=== PATIENT | female | born 1955 | race Caucasian/White ===

== ENCOUNTER 2023-10-22 08:16 | Outpatient (AMB) | payer BC, SELFPAY ==
--- NOTE | 2023-10-22 08:10 | A.OFFPC_ITS ---
Vital Signs 10/22/23 08:28 Height 5 ft 7.76 in Weight 173 lb 8 oz BMI 26.6 BP 136/80 Blood Pressure Location Rt brachial Position Sitting Respiration 14 Pulse 58 Pulse Source Pulse Oximeter Temp 98 F Temp Source Oral Pulse Oximetry (%) 98 Oxygen Delivery Method Room Air Intake Visit Reasons: Establish care [facility] transfer Intake Note: New patient visit - Allergies No Known Allergies Allergy (Verified 10/22/23 08:23) Tobacco use date assessed: 10/22/23 Fall risk assessment: No Falls in past year Last assessed Fall Risk: 10/22/23 Dental Screening Dental Screen Date: 10/22/23 Did you have a dental visit in the last 12 months?: Yes Did you have a dental problem in the last 6 months where you did not have access to dental care?: No Was dental information given to patient?: Patient has dentist HPI Establish care [facility] transfer HPI Details Patient is a 68-year-old female with a significant past medical history of hypertension, hyperlipidemia, diverticulosis who [facility] today [facility] [place] CV: Blood pressure today in the office is 136/80. She is on lisinopril 10 mg. Cholesterol is usually controlled with simvastatin 30 mg. No cp, sob. Endo: She states her thyroid was sluggish in the past and if still is, she wants to start medication. GI: She is getting intermittent lower abdominal pain that has been now happening every few weeks for one 1 week. She states it feels like it is becoming more frequent. Last year when she had this we did a ct which was unrevealing other than diverticulosis. She states she wonders if she is getting flare-ups of diverticulitis. She does not have any diarrhea, constipation, blood in the stool or urine. No urinary symptoms with this. At times she will get a decreased appetite with it. No fever, chills, nausea or vomiting. She states it just has this nagging lower abdominal discomfort. Mammo: Up-to-date, 11/06 and normal Pap: declines anymore Bone density: WVD-normal 2023 Colonoscopy: Up-to-date, 2021 Derm: sees [facility] and saw them in March Immunizations: [facility] Medical History (Updated 10/22/23 @ 08:46 by Delicia Schuster PA-C) H/O mammogram Tinnitus Solar degeneration Hypercholesterolemia Essential hypertension Dysfunction of eustachian tube Diverticulitis Allergic rhinitis Surgical History (Updated 10/22/23 @ 08:17 by Joslyn Cruz CMA) H/O colonoscopy Family History (Updated 10/22/23 @ 09:02 by Joslyn Cruz CMA) Mother HTN (hypertension) Hypercholesterolemia Father HTN (hypertension) Hypercholesterolemia Social History (Updated 10/22/23 @ 08:17 by Joslyn Cruz CMA) Housing: House Patient Tobacco Use Status: Never used Tobacco service: Yes Current occupational status: retired Cognitive needs: No Hearing needs: No Vision needs: No Questionnaire PHQ-9 Over the last 2 weeks, how often have you been bothered by any of the following problems? 1. Little interest or pleasure in doing things: not at all 2. Feeling down, depressed, or hopeless: not at all 3. Trouble falling or staying asleep, or sleeping too much: several days 4. Feeling tired or having little energy: several days 5. Poor appetite or overeating: not at all 6. Feeling bad about yourself - or that you are a failure or have let yourself or your family down: not at all 7. Trouble concentrating on things, such as reading the newspaper or watching television: not at all 8. Moving or speaking so slowly that other people could have noticed. Or the opposite - being so fidgety or restless that you have been moving around a lot more than usual: not at all 9. Thoughts that you would be better off or of hurting yourself in some way: not at all Total score: 2 Depression Screening Interpretation: Negative Depression Screening Done: Yes 30305 - PHQ-9 Billing: Yes Source: Developed by Drs. Jose Manuel Bowen, Za Rivas, Joce Salguero and colleagues, with an educational zbigniew from [employer]. Thrive Questionnaire Date Thrive assessed: 10/22/23 I am a: Patient What is your living situation today?: I have a steady place to live Within the past 12 months, did the food you bought not last and you didn't have the money to get more?: Never true Within the past 12 months, did you worry whether your food would run out before you got money to buy more?: Never true Do you have trouble paying for medicines?: No Do you have trouble getting transportation to medical appointments?: No Do you have trouble paying your heating and electricity bill?: No Do you have trouble taking care of your child, family member or friend?: No Do you have trouble with day-to-day activities such as bathing, preparing meals, shopping, managing finances, etc.?: No Are you currently unemployed and looking for a job?: No Are you interested in more education?: No Please select the resources that you would like help with: None Currently or been in a relationship where the following occur: No concerns reported THRIVE Score: 0 AUDIT C Alcohol Use Questionnaire (AUDIT-C) 1. How often do you have a drink containing alcohol?: 2-3 times a week 2. How many drinks containing alcohol do you have on a typical day when you are drinking?: 1 or 2 3. How often do you have six or more drinks on one occasion?: Never Total Score: 3 ISAI-7 AMB Questionnaire ISAI-7 Date ISAI - 7 assessed: 10/22/23 Feeling nervous, anxious, or on edge: 0 = Not at all Not being able to stop or control worryin = Not at all Worrying too much about different things: 0 = Not at all Trouble relaxin = Not at all Being so restless that it is hard to sit still: 0 = Not at all Becoming easily annoyed or irritable: 0 = Not at all Feeling afraid as if something awful might happen: 0 = Not at all Total ISAI-7 score (0-4 normal; 5-9 mild; 10-14 moderate; 15-21 severe): 0 Source: Developed by Drs. Jose Manuel Bowen, Za Rivas, Joce Salguero and colleagues, with an educational zbigniew from [employer]. ISAI-7 Assessment Billing ISAI-7 Assessment Tool: ISAI-7 Assessment 61290 Physical exam (Primary Care) Vital Signs: Last Vital Signs Temp 98 F 10/22/23 08:28 Pulse 58 10/22/23 08:28 Resp 14 10/22/23 08:28 BP 136/80 10/22/23 08:28 Pulse Ox 98 10/22/23 08:28 Oxygen Delivery Method Room Air 10/22/23 08:28 BMI result Body Mass Index 26.6 Tobacco/Smoking Status: Tobacco use Status Tobacco use date assessed 10/22/23 10/22/23 08:30 Patient Tobacco Use Status Never used Tobacco 10/22/23 08:30 Depression Screening Interpretation: Negative Currently or been in a relationship where the following occur: No concerns reported Const Orientation/consciousness: patient oriented x3 HENMT Ears: hearing grossly normal bilaterally Neck Thyroid: Thyroid normal Lymphatic: no lymphadenopathy noted Resp Auscultation: clear to auscultation bilaterally Cardio Rate: regular rate Rhythm: regular rhythm Heart sounds: S1 normal heart sound present and S2 normal heart sound present GI Inspection: Yes normal to inspection Palpation (GI): Soft to palpation and Other GI palpation findings present (nontender, no cva tenderness) Auscultation: normoactive bowel sounds Rectal Exam - Female: deferred Skin General skin exam: no rashes or lesions noted Neuro General: patient oriented x3, gait normal and no focal motor deficits Assessment and Plan Assessment & Plan (1) Hypertension: Code(s): I10 - Essential (primary) hypertension Qualifiers: Hypertension type: primary hypertension Qualified Code(s): I10 - Essential (primary) hypertension Plan: WNL. Continue current regimen. (2) Dyslipidemia: Code(s): E78.5 - Hyperlipidemia, unspecified Plan: Lipids and LFTs ordered. (3) Lower abdominal pain: Code(s): R10.30 - Lower abdominal pain, unspecified Plan: Advised high-fiber diet. Referral to GI. Abdominal exam today is benign. Labs and urine ordered. Follow up in a couple of months to be reassessed. Sooner if needed. Patient understands and agrees with the plan. Orders: Orders UA CC w/rflx Micro + Cult Today R10.30 - Lower abdominal pain, unspecified Referrals Gastroenterology Referral R10.30 - Lower abdominal pain, unspecified Coding Level of Care Code Est Pt Level 4 (38954) Complex EM visit Add On G2211 Diagnoses Primary hypertension I10 Hypertension type: primary hypertension Dyslipidemia E78.5 Lower abdominal pain R10.30 Additional Codes ISAI-7 Assessment Billing - ISAI-7 Assessment Tool: ISAI-7 Assessment 74113 ([id number])
[2023-10-22 08:28] VITALS: BP 136/80; PULSE 58; RESP 14; TEMP 36.6; O2SAT 98; BMI 26.6
== END 2023-10-22 09:03 | disposition home or self-care (01) ==
PROVIDERS: PCP Physician Assistant; Visit Provider Physician Assistant
DX: I10 Essential (primary) hypertension (principal); E78.5 Hyperlipidemia, unspecified; R10.30 Lower abdominal pain, unspecified
CPT/HCPCS: 99214

== ENCOUNTER 2023-10-23 07:34 | Outpatient (REF) | payer BC, SELFPAY ==
[2023-10-23 10:57] LABS: MANUAL DIFF FLAG NO
[2023-10-23 11:05] LABS: Appearance Urine Cloudy; Color Urine Yellow; Glucose Urine UA Negative (Negative); Leukocyte Esterase Urine Small (1+) (Negative); Nitrite Urine Negative (Negative); UMIC TRIGGER UACC YES; Urine Blood Negative (Negative); Urine Ketones Negative (Negative); Urine Protein Negative (Neg-Trace)
[2023-10-23 11:07] LABS: Basophils Percent Auto 0.6 % (0-2); Eosinophils Absolute Auto 0.1 X10*3/uL (0.0-0.4); Eosinophils Percent Auto 2.1 % (0-4); Hematocrit 44.6 % (37.0-47.0); Imm Gran Abs Auto 0.01 X10*3/uL (0.00-0.03); Imm Gran Pct Auto 0.2 % (0.0-0.4); Lymphocytes Absolute Auto 1.9 X10*3/uL (1.2-4.9); Lymphocytes Percent Auto 39.7 % (20-40); Mean Corpuscular HGB Conc 33.6 g/dl (31.0-35.0); Mean Corpuscular Hemoglobin 30.4 pg (27.0-33.0); Mean Corpuscular Volume 90.5 fL (80.0-98.0); Mean Platelet Volume 9.9 fL (9.4-12.3); Monocytes Absolute Auto 0.3 X10*3/uL (0.1-1.2); Monocytes Percent Auto 6.9 % (2-11); Neutrophils Absolute Auto 2.4 x10*3/uL (2.0-8.3); Neutrophils Percent Auto 50.5 % (45-73); Platelet Count 278 X10*3/uL (160-400); Red Blood Count 4.93 X10*6/uL (4.20-5.50); Red Cell Distribution Width 12.8 % (11.0-16.0); White Blood Count 4.8 X10*3/uL (4.8-10.8)
[2023-10-23 11:22] LABS: Bacteria Urine None Seen (None Seen); Calcium Oxalate Crystals Urine Present; Hyaline Casts Urine 0-2 /LPF (0-2); RBC Urine 0-2 /HPF (0-2); UACC Culture Trigger YES; WBC Urine 0-5 /HPF (0-5)
[2023-10-23 11:34] LABS: Alanine Aminotransferase 25 U/L (0-31); Albumin Level 4.1 g/dL (3.5-5.0); Alkaline Phosphatase 54 U/L (39-117); Anion Gap 11 (12-20); Aspartate Amino Transferase 21 U/L (5-31); Bilirubin Total 0.5 mg/dL (0.0-1.0); Blood Urea Nitrogen 16 mg/dL (9-16); Calcium 9.7 mg/dL (8.4-10.2); Carbon Dioxide 29 mmol/L (22-29); Chloride 107 mmol/L (96-108); Cholesterol 189 mg/dL (<200); Estimated Glomerular Filt Rate > 60; Glucose Fasting 91 mg/dL (60-99); HDL Cholesterol 65 mg/dL (>40); LDL Cholesterol Calculated 102 mg/dL (<100); Potassium 4.2 mmol/L (3.3-5.1); Sodium 143 mmol/L (135-145); TSH reflex Free T4 2.12 uIU/mL (0.32-4.0); Total Protein 7.2 g/dL (6.5-8.0); Triglycerides 113 mg/dL (<150)
== END 2023-10-23 07:35 | disposition home or self-care (01) ==
LOC: HO.WFDLDS 07:34
PROVIDERS: Visit Provider Physician Assistant
DX: E78.5 Hyperlipidemia, unspecified (principal); I10 Essential (primary) hypertension; R10.30 Lower abdominal pain, unspecified
CPT/HCPCS: 36415; 80053; 80061; 81001; 81003; 84443; 85025; 87086

== ENCOUNTER 2024-01-20 13:40 | Outpatient (AMB) | payer BC, SELFPAY ==
[2024-01-20 13:56] VITALS: BP 140/85; PULSE 81; BMI 26.6
--- NOTE | 2024-01-20 13:56 | MHC.OFFVIS ---
Vital Signs 01/20/24 13:56 Height 5 ft 7.76 in Weight 173 lb 11.588 oz BMI 26.6 BP 140/85 H Blood Pressure Location Rt brachial Position Sitting Pulse 81 Intake Visit Reasons: Lower abd pain Intake Note: Patient in office today as a new patient for diverticulosis. CC: Patient states that she had a CT scan done a year ago that showed diverticulosis. She states that she's had it for years and she sometimes has some flare ups but she believes she has a high tolerance to pain and she just waits until the pain goes away. She states that she sometimes gets constipated and she takes Metamucil sporadically and fiber which helps with constipation. Marriage And Family Counselor Required: No Pick Up Driver: Pick Up Driver Present Allergies No Known Allergies Allergy (Verified 02/04/24 08:24) HPI HPI Lower abd pain: Details: 68-year-old female here for initial evaluation of abdominal pain. She is referred by Delicia Schuster. Sd Richardson Hypertension High cholesterol History of diverticulitis Eustachian tube dysfunction Allergic rhinitis * SURGICAL HISTORY Colonoscopy * ALLERGIES: NKDA * Plays.IO LABS: Laboratory Tests 10/23/23 10/23/23 07:36 09:36 WBC 4.8 Hgb 15.0 Hct 44.6 Plt Count 278 Estimated GFR > 60 Total Bilirubin 0.5 jAST 21 ALT 25 Alkaline Phosphatase 54 TSH 2.12 TODAY'S VISIT ONset many years ago with lower abd pain and she was given a physical exam and dx of diverticulitis. THey gave her abx and it cleared up. Now every so often she will have some pain that spans across the lower abd just below the umbilicus as a burning pain. When she would not have pain she would not think about this. BUT then her sister had some sort of blockage that lead to sepsis and an ICU stay. This worried her and she had a CT at [facility] [place] showing only mild TICs and a GB polyp. Since then she has tried to add dietary fiber and she has had no more pain. She had been taking metamucil but was confused about it conflicting with her am lisinopril. We discuss diet and I print her one with the caveat that this is somewhat controversy in research. Also changing time of day of fiber supplement and could consider Benefiber or Citrucel or IB guard. Last scope 06/2020 at [facility] with Dr. Cervantes. ROV 3 mos. [facility] Medical History (Updated 10/22/23 @ 08:46 by Delicia Schuster PA-C) H/O mammogram Tinnitus Solar degeneration Hypercholesterolemia Essential hypertension Dysfunction of eustachian tube Diverticulitis Allergic rhinitis Surgical History History of esophagogastroduodenoscopy (EGD) H/O colonoscopy Family History Mother HTN (hypertension) Hypercholesterolemia Basal cell carcinoma Father HTN (hypertension) Hypercholesterolemia Social History (Updated 02/04/24 @ 08:29 by Joslyn Cruz CMA) Housing: House Alcohol intake: current Alcohol intake frequency: holidays/special occasions only Patient Tobacco Use Status: Never used Tobacco service: Yes Current occupational status: retired Cognitive needs: No Hearing needs: No Vision needs: No Review of Systems Const Denies fatigue, Denies fever(s), Denies night sweats, Denies poor appetite and Denies weight loss Eyes Details: glasses Reports requires corrective lenses ENT Reports Normal hearing present, Denies dental pain, Denies dysphagia, Denies hearing loss, Denies mouth pain, Denies odynophagia, Denies throat swelling, Denies tongue swelling and Reports other (Dentition adequate) Card Reports no additional complaints Resp Reports no additional complaints GI Details: Denies abdominal pain, Denies melena, Denies bloating, Denies hematochezia, Denies constipation, Reports GI cramping, Denies dysphagia, Denies excessive flatus, Denies early satiety, Denies heartburn, Denies diarrhea, Denies nausea, Denies odynophagia, Denies vomiting and Denies hematemesis Skin/Breast Denies pruritus, Denies lesions, Denies rash and Denies jaundice Neuro Reports Normal hearing present and Denies Abnormal speech present Endo Denies fatigue Aller/Immun Denies throat swelling and Denies tongue swelling Physical Exam Vital Signs: Last Vital Signs Pulse 81 01/20/24 13:56 BP 140/85 H 01/20/24 13:56 BMI result Body Mass Index 26.6 Const General: cooperative, no acute distress, well developed and well groomed Nutritional Appearance: average body habitus and well nourished Orientation/consciousness: oriented to person, oriented to place and oriented to time Limitations: No language barrier HEENT Head: Yes normocephalic and Yes atraumatic Eyes General: appearance normal, both eyes and all related structures Pupils: Equal, round and reactive pupils present Neck Neck: Yes normal visual inspection and Yes no lymphadenopathy Thyroid: Thyroid normal Resp Effort & Inspection: normal respiratory effort and able to speak in complete sentences Auscultation: clear to auscultation bilaterally Cardio Rate: regular rate Rhythm: regular rhythm Heart sounds: Normal, physiologic split S2 sound present Peripheral pulses: radial pulses present and posterior tibial pulses present GI Inspection: No distended and No Abdominal panniculus present Palpation (GI): Soft to palpation, nontender, no guarding, not rigid and No hepatosplenomegaly present Percussion: Yes normal to percussion Auscultation: normal bowel sounds Rectal Exam - Female: deferred Skin Other: dermal cyst on mid thoracic back General skin exam: no rashes or lesions noted, turgor normal, dry skin, no jaundice, No spider nevi and no striae Rashes: no rashes Nails: normal Neuro General: oriented to person, oriented to place and oriented to time Cranial nerves: Yes Equal, round and reactive pupils present and Yes Normal hearing present Speech: No Abnormal speech present Extrem General: Yes normal to inspection, No clubbing, No cyanosis and No edema Psych Appearance: grossly normal and well kempt Mental Status: mental status grossly normal Speech and movement: Normal speech and movement present Affect: normal affect Attitude: cooperative Thought process: Normal thought process present and not confabulating Thought content: Normal thought content present Insight: Fair insight present (Psych) Judgement: Fair judgement present (Psych) Assessment & Plan Assessment & Plan (1) Lower abdominal pain: Code(s): R10.30 - Lower abdominal pain, unspecified Category: Medical (2) Diverticulosis: Code(s): K57.90 - Diverticulosis of intestine, part unspecified, without perforation or abscess without bleeding Category: Medical Plan ONset many years ago with lower abd pain and she was given a physical exam and dx of diverticulitis. THey gave her abx and it cleared up. Now every so often she will have some pain that spans across the lower abd just below the umbilicus as a burning pain. When she would not have pain she would not think about this. BUT then her sister had some sort of blockage that lead to sepsis and an ICU stay. This worried her and she had a CT at [facility] [place] showing only mild TICs and a GB polyp. Since then she has tried to add dietary fiber and she has had no more pain. She had been taking metamucil but was confused about it conflicting with her am lisinopril. We discuss diet and I print her one with the caveat that this is somewhat controversy in research. Also changing time of day of fiber supplement and could consider Benefiber or Citrucel or IB guard. She seems to feel better when she has the fiber so I suspect this is some form of diverticular disease. Now that she knows she needs to take the fiber and it is okay to take it with the lisinopril we will go forward and see how she reacts to this. Last scope 06/2020 at [facility] with Dr. Cervantes. ROV 3 mos. Coding Level of Care Code New Pt Level 3 (86629) Diagnoses Lower abdominal pain R10.30 Diverticulosis K57.90
== END 2024-01-20 15:00 | disposition home or self-care (01) ==
LOC: HO.HGI 13:40
PROVIDERS: PCP Physician Assistant; Visit Provider Nurse Practitioner
DX: R10.30 Lower abdominal pain, unspecified (principal); K57.90 Diverticulosis of intestine, part unspecified, without perforation or abscess without bleeding
CPT/HCPCS: 99203

== ENCOUNTER 2024-02-04 08:17 | Outpatient (AMB) | payer BC, SELFPAY ==
--- NOTE | 2024-02-04 08:23 | MHC.PC.OV ---
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: No Allergies No Known Allergies Allergy (Verified 02/04/24 08:24) Medication List - Last Reconciled 02/04/24 by Delicia Schuster PA-C cholecalciferol (vitamin D3) 25 mcg PO DAILY econazole 1% appl topical lisinopril 10 mg PO DAILY metronidazole 0.75% appl topical multivitamin (One Daily Multivitamin tablet) 1 tab PO DAILY psyllium husk (Metamucil) 1 tbsp PO DAILY simvastatin 20 mg PO BEDTIME tacrolimus 0.1% 1 appl topical BID Tobacco use date assessed: 10/22/23 Dental Screening Dental Screen Date: 10/22/23 HPI f/u blood pressure HPI Details History of Present Illness The patient is a 68-year-old female presenting with a follow-up for previously reported abdominal pain, blood pressure management, and hyperlipidemia. The patient reports a history of abdominal pain, which has improved significantly with increased dietary fiber intake, using Metamucil intermittently. This abdominal issue was initially significant but appears to have resolved. Regarding her blood pressure, the patient has a history of essential hypertension managed with lisinopril 10 mg daily. She noted a trend of mildly elevated blood pressure readings recently, with today's measurement at 136/86 mmHg and previous readings around 140/85 mmHg, prompting consideration for medication adjustment. She has been on simvastatin 20 mg for hyperlipidemia, which has shown good control, with her cholesterol results noted as perfect. Social History - Resides with her sister. - Attempts adherence to a health-conscious diet, inclusive of increased fiber intake. - Receives medications via mail order delivery service. Review of Systems - Neurological: Denies any memory issues or significant neurological events. Physical Exam General: Cooperative, healthy appearing, comfortable, no acute distress and well developed Orientation: Patient oriented x3 Limitations: No limitations Head: Normal to inspection Ears: Hearing grossly normal bilaterally Nose: Normal external nose present Face and sinus: Normal facial exam Eyes: Appearance normal, both eyes and all related structures Neck: Normal visual inspection and Yes full ROM, no swollen lymph nodes Respiratory: Normal respiratory effort and able to speak in complete sentences. Clear to auscultation bilaterally Cardiovascular: Regular rate and rhythm. Normal S1 and S2 GI: Normal to inspection. Soft to palpation and nontender Skin: No rashes or lesions noted Neuro: Patient oriented x3 Extremities: Normal to inspection, no swelling Results Plan - Essential Hypertension: Patient to increase lisinopril to a total of 15 mg daily using one 10 mg tablet and one 5 mg tablet. Tried 20 mg one time and felt that was too much. Does not want to take a different class of med. The patient should monitor blood pressure at home. Follow-up lab work prior to the next visit to reassess her condition. - Hyperlipidemia: Continue simvastatin 20 mg daily. No immediate adjustments required due to current excellent control over cholesterol levels. - Preventative Measures: Administer flu vaccination today. All other immunizations are up to date. Recheck labs including liver, kidney function, and electrolytes before the next visit. Patient was informed and verbally consented to the use of an ambient scribe for clinic note documentation during this visit. Discussion Notes During the visit, I discussed with the patient the plan to adjust her hypertension management by increasing her lisinopril dose to 15 mg daily to better control her blood pressure, given recent borderline elevations. We weighed the benefits against past experiences where a higher dosage resulted in overly low blood pressure. I advised her to monitor her blood pressure readings at home regularly. Regarding her hyperlipidemia, her current regimen with simvastatin 20 mg will continue as her lipid profile is optimal. We also covered the importance of maintaining increased fiber intake, which appears to have resolved her prior abdominal pain concerns. Additionally, I recommended the administration of a higher-dose flu vaccine appropriate for her age group. We plan to conduct follow-up lab work before the next visit to monitor her liver and kidney function, as well as her blood sugar and thyroid function. Patient Instructions [facility] Medical History (Updated 10/22/23 @ 08:46 by Delicia Schuster PA-C) H/O mammogram Tinnitus Solar degeneration Hypercholesterolemia Essential hypertension Dysfunction of eustachian tube Diverticulitis Allergic rhinitis Surgical History (Updated 01/20/24 @ 14:03 by SLOAN Abrams) History of esophagogastroduodenoscopy (EGD) H/O colonoscopy Family History (Updated 01/20/24 @ 14:07 by Vilmarys Sree Magana, CCMA) Mother HTN (hypertension) Hypercholesterolemia Basal cell carcinoma Father HTN (hypertension) Hypercholesterolemia Social History (Updated 01/20/24 @ 14:08 by Redd Magana [facility]) Housing: House Alcohol intake: current Alcohol intake frequency: holidays/special occasions only Patient Tobacco Use Status: Never used Tobacco service: Yes Current occupational status: retired Cognitive needs: No Hearing needs: No Vision needs: No Questionnaire PHQ-9 Over the last 2 weeks, how often have you been bothered by any of the following problems? 1. Little interest or pleasure in doing things: not at all 2. Feeling down, depressed, or hopeless: not at all 3. Trouble falling or staying asleep, or sleeping too much: not at all 4. Feeling tired or having little energy: not at all 5. Poor appetite or overeating: not at all 6. Feeling bad about yourself - or that you are a failure or have let yourself or your family down: not at all 7. Trouble concentrating on things, such as reading the newspaper or watching television: not at all 8. Moving or speaking so slowly that other people could have noticed. Or the opposite - being so fidgety or restless that you have been moving around a lot more than usual: not at all 9. Thoughts that you would be better off or of hurting yourself in some way: not at all Total score: 0 Source: Developed by Drs. Jose Manuel Bowen, Za Rivas, Joce Salguero and colleagues, with an educational zbigniew from [employer]. Thrive Questionnaire Date Thrive assessed: 01/28/24 I am a: Patient What is your living situation today?: I have a steady place to live Within the past 12 months, did the food you bought not last and you didn't have the money to get more?: Never true Within the past 12 months, did you worry whether your food would run out before you got money to buy more?: Never true Do you have trouble paying for medicines?: No Do you have trouble getting transportation to medical appointments?: No Do you have trouble paying your heating and electricity bill?: No Do you have trouble taking care of your child, family member or friend?: No Do you have trouble with day-to-day activities such as bathing, preparing meals, shopping, managing finances, etc.?: No Are you currently unemployed and looking for a job?: No Are you interested in more education?: No Please select the resources that you would like help with: None Currently or been in a relationship where the following occur: No concerns reported THRIVE Score: 0 AUDIT C Alcohol Use Questionnaire (AUDIT-C) 1. How often do you have a drink containing alcohol?: 2-3 times a week 2. How many drinks containing alcohol do you have on a typical day when you are drinking?: 1 or 2 3. How often do you have six or more drinks on one occasion?: Never Total Score: 3 SIAI-7 AMB Questionnaire ISAI-7 Date ISAI - 7 assessed: 10/22/23 Feeling nervous, anxious, or on edge: 0 = Not at all Not being able to stop or control worryin = Not at all Worrying too much about different things: 0 = Not at all Trouble relaxin = Not at all Being so restless that it is hard to sit still: 0 = Not at all Becoming easily annoyed or irritable: 0 = Not at all Feeling afraid as if something awful might happen: 0 = Not at all Total ISAI-7 score (0-4 normal; 5-9 mild; 10-14 moderate; 15-21 severe): 0 Source: Developed by Drs. Jose Manuel Bowen, Za Rivas, Joce Salguero and colleagues, with an educational zbigniew from [employer]. Physical exam (Primary Care) Tobacco/Smoking Status: Tobacco use Status Tobacco use date assessed 10/22/23 02/04/24 08:24 Patient Tobacco Use Status Never used Tobacco 02/04/24 08:24 PHQ-9: PHQ-9 Score PHQ-9: Total score 0 02/04/24 08:24 Thrive Assessment: Date of Thrive Assessment Date Thrive assessed 01/28/24 02/04/24 08:24 Currently or been in a relationship where the following occur: No concerns reported Coding Level of Care Code Est Pt Level 4 (40131) Complex EM visit Add On G2211 Diagnoses Dyslipidemia E78.5 Primary hypertension I10 Hypertension type: primary hypertension Assessment & Plan Assessment & Plan (1) Dyslipidemia: Code(s): E78.5 - Hyperlipidemia, unspecified Category: Medical (2) Hypertension: Code(s): I10 - Essential (primary) hypertension Category: Medical Qualifiers: Hypertension type: primary hypertension Qualified Code(s): I10 - Essential (primary) hypertension Plan . Orders: Orders Comprehensive [place]. Panel Fast Today E78.5 - Hyperlipidemia, unspecified, I10 - Essential (primary) hypertension TSH reflex Free T4 Today E78.5 - Hyperlipidemia, unspecified, I10 - Essential (primary) hypertension Complete Blood Count Auto Diff Today E78.5 - Hyperlipidemia, unspecified, I10 - Essential (primary) hypertension Medications: New simvastatin 20 mg PO BEDTIME 90 tabs 3RF lisinopril take with the 10 mg tab for a total of 15 mg 5 mg PO DAILY 90 tabs 3RF Changed From lisinopril 10 mg PO DAILY To lisinopril take with the 5 mg tab for a total of 15 mg 10 mg PO DAILY 90 tabs 3RF
[2024-02-04 08:26] VITALS: BP 136/86; PULSE 63; O2SAT 99; BMI 26.9
== END 2024-02-04 08:54 | disposition home or self-care (01) ==
PROVIDERS: PCP Physician Assistant; Visit Provider Physician Assistant
DX: E78.5 Hyperlipidemia, unspecified (principal); I10 Essential (primary) hypertension

== ENCOUNTER → 2024-02-04 08:17 | Outpatient (BNVA) | payer BC, SELFPAY | PROVIDERS: PCP Physician Assistant; Visit Provider Physician Assistant ==

== ENCOUNTER 2024-04-26 08:04 | Outpatient (REF) | payer BC, SELFPAY ==
--- OUTSIDE RECORDS SUMMARY | 2024-04-26 08:08 | XMS_ITS | Patient Health Record ---
Author Organization [facility] Address [address] [place] [address] Support Name Relationship Address Phone THERESA SMITH Guarantor Unknown [phone] Reason For Referral No Information Medications Medication SIG (Take, Route, Fr equency, Duration) Notes Start Date End Date Status Zocor 20MG 1 ORAL daily for -3 Benjamín-MJ 06/20/2011 Active Lisinopril 10MG 1 ORAL daily for -3 Benjamín-MJ 04/21/2011 Active Immunizations Vaccine Route Administration Date Status Comme nts Influenza, live, intranasal Intramuscular 10/08/2011 Pendi ng Tdap Intramuscular 10/08/2011 Pending Problems Problem Type SNOMED Code ICD Code Onset Dates Problem Status W/U Status Risk Notes Problem Hyperlipidemia (66647561) Other and unspecified hyperlipidemia (272.4) Active confirmed Major Problem Essential hypertension (84422145) Unspecified essential hypertension (401.9) Active confirmed Major Problem General examination of patient (976726176) Routine general medical examination at health care facility (V70.0) Active confirmed Diag Plan Of Treatment No Information Insurance Providers Payer Name Payer Address Payer Phone Subscriber Number Group Number Insured Name Patient Relationship to Insured Coverage Start Date Coverage End Date [employer] [place] [address] [place] [address] [id number] LUISTHERESA Self - patient is the insured
[2024-04-26 11:06] LABS: MANUAL DIFF FLAG NO
[2024-04-26 11:12] LABS: Basophils Absolute Auto 0.1 X10*3/uL (0.0-0.2); Basophils Percent Auto 0.7 % (0-2); Eosinophils Absolute Auto 0.1 X10*3/uL (0.0-0.4); Eosinophils Percent Auto 1.6 % (0-4); Hematocrit 43.6 % (37.0-47.0); Hemoglobin 14.6 g/dl (12.0-16.0); Imm Gran Abs Auto 0.02 X10*3/uL (0.00-0.03); Imm Gran Pct Auto 0.3 % (0.0-0.4); Lymphocytes Absolute Auto 1.7 X10*3/uL (1.2-4.9); Lymphocytes Percent Auto 25.1 % (20-40); Mean Corpuscular HGB Conc 33.5 g/dl (31.0-35.0); Mean Corpuscular Hemoglobin 29.7 pg (27.0-33.0); Mean Corpuscular Volume 88.8 fL (80.0-98.0); Mean Platelet Volume 9.9 fL (9.4-12.3); Monocytes Absolute Auto 0.5 X10*3/uL (0.1-1.2); Monocytes Percent Auto 7.8 % (2-11); Neutrophils Absolute Auto 4.3 x10*3/uL (2.0-8.3); Neutrophils Percent Auto 64.5 % (45-73); Platelet Count 304 X10*3/uL (160-400); Red Blood Count 4.91 X10*6/uL (4.20-5.50); White Blood Count 6.7 X10*3/uL (4.8-10.8)
[2024-04-26 11:37] LABS: Alanine Aminotransferase 22 U/L (0-31); Albumin Level 4.1 g/dL (3.5-5.0); Alkaline Phosphatase 56 U/L (39-117); Anion Gap 9 (12-20); Aspartate Amino Transferase 23 U/L (5-31); Bilirubin Total 0.4 mg/dL (0.0-1.0); Blood Urea Nitrogen 20 mg/dL (9-16); Calcium 9.3 mg/dL (8.4-10.2); Carbon Dioxide 27 mmol/L (22-29); Chloride 110 mmol/L (96-108); Estimated Glomerular Filt Rate > 60; Glucose Fasting 95 mg/dL (60-99); Potassium 4.2 mmol/L (3.3-5.1); Sodium 142 mmol/L (135-145); Total Protein 7.4 g/dL (6.5-8.0)
== END 2024-04-26 08:05 | disposition home or self-care (01) ==
LOC: HO.WFDLDS 08:04
PROVIDERS: Visit Provider Physician Assistant
DX: I10 Essential (primary) hypertension (principal); E78.5 Hyperlipidemia, unspecified
CPT/HCPCS: 36415; 80053; 84443; 85025

== ENCOUNTER 2024-04-28 08:27 | Outpatient (AMB) | payer BC, SELFPAY ==
--- NOTE | 2024-04-28 08:22 | MHC.PC.OV ---
Intake Visit Reasons: bp recheck,labs,has bp machine/[id number] Intake Note: Follow up blood pressure and labs. Blood pressure at home at 127/85, 129/87.121/83 Allergies No Known Allergies Allergy (Verified 04/28/24 08:23) Tobacco use date assessed: 10/22/23 Dental Screening Dental Screen Date: 10/22/23 HPI bp recheck,labs,has bp machine/[id number] HPI Details Pt is a 69 y/o female who presents today for a follow up. She states she switched to telehealth due to weather and getting sick. She states she woke up yesterday with sinus congestion, fatigue, runny nose and a slight cough. She states she tested for covid and it was negative. She is feeling better today when compared to yesterday. She states that she feels confident that it is just a cold. She has been using [id number] supportive measures and resting and states that she can tell it is getting better. Denies any fever, chills, wheezing, shortness for breath, nausea, vomiting or diarrhea. No body aches. CV: bps at home have been around 115-130/70-80. She is doing well with the 15 mg of lisinopril. No low bps and states nothing significantly high. Cholesterol has been well managed with the simvastatin. No myalgias. Mammo: Up-to-date, 11/06 and normal Pap: declines anymore Bone density: UTD-normal 2023 Colonoscopy: Up-to-date, 2021 Derm: sees [facility] and saw them in March Immunizations: [facility] Medical History (Updated 10/22/23 @ 08:46 by Delicia Schuster PA-C) H/O mammogram Tinnitus Solar degeneration Hypercholesterolemia Essential hypertension Dysfunction of eustachian tube Diverticulitis Allergic rhinitis Surgical History History of esophagogastroduodenoscopy (EGD) H/O colonoscopy Family History Mother HTN (hypertension) Hypercholesterolemia Basal cell carcinoma Father HTN (hypertension) Hypercholesterolemia Social History (Updated 04/28/24 @ 08:25 by Joslyn Cruz CMA) Housing: House Alcohol intake: current Alcohol intake frequency: holidays/special occasions only Patient Tobacco Use Status: Never used Tobacco service: Yes Current occupational status: retired Cognitive needs: No Hearing needs: No Vision needs: No Questionnaire Thrive Questionnaire Date Thrive assessed: 04/21/24 I am a: Patient What is your living situation today?: I have a steady place to live Within the past 12 months, did the food you bought not last and you didn't have the money to get more?: Never true Within the past 12 months, did you worry whether your food would run out before you got money to buy more?: Never true Do you have trouble paying for medicines?: No Do you have trouble getting transportation to medical appointments?: No Do you have trouble paying your heating and electricity bill?: No Do you have trouble taking care of your child, family member or friend?: No Do you have trouble with day-to-day activities such as bathing, preparing meals, shopping, managing finances, etc.?: No Are you currently unemployed and looking for a job?: No Are you interested in more education?: No Please select the resources that you would like help with: None Currently or been in a relationship where the following occur: No concerns reported THRIVE Score: 0 AUDIT C Alcohol Use Questionnaire (AUDIT-C) 1. How often do you have a drink containing alcohol?: 2-3 times a week 2. How many drinks containing alcohol do you have on a typical day when you are drinking?: 1 or 2 3. How often do you have six or more drinks on one occasion?: Never Total Score: 3 ISAI-7 AMB Questionnaire ISAI-7 Date ISAI - 7 assessed: 10/22/23 Feeling nervous, anxious, or on edge: 0 = Not at all Not being able to stop or control worryin = Not at all Worrying too much about different things: 0 = Not at all Trouble relaxin = Not at all Being so restless that it is hard to sit still: 0 = Not at all Becoming easily annoyed or irritable: 0 = Not at all Feeling afraid as if something awful might happen: 0 = Not at all Total ISAI-7 score (0-4 normal; 5-9 mild; 10-14 moderate; 15-21 severe): 0 Source: Developed by Za Barbour Kurt Kroenke and colleagues, with an educational zbigniew from [employer]. Physical exam (Primary Care) Tobacco/Smoking Status: Tobacco use Status Tobacco use date assessed 10/22/23 04/28/24 08:25 Patient Tobacco Use Status Never used Tobacco 04/28/24 08:25 Thrive Assessment: Date of Thrive Assessment Date Thrive assessed 04/21/24 04/28/24 08:25 Currently or been in a relationship where the following occur: No concerns reported Telehealth Telehealth Telehealth Platform: Telephone Location of provider rendering services: practice address Location of patient: address on file Patient Identification confirmed using: Name, : Yes Telehealth method: voice only Patient verbally consented to treatment: Yes Patient verbally consented to billing insurance company: Yes Patient informed of any privacy concerns related to visit: Yes Minutes spent on Phone/Video with Pt.: 17 Results Reviewed Results Reviewed: Laboratory Tests 04/26/24 08:05 WBC 6.7 RBC 4.91 Hgb 14.6 Hct 43.6 Plt Count 304 Sodium 142 Potassium 4.2 Chloride 110 H Carbon Dioxide 27 Anion Gap 9 L BUN 20 H Creatinine 0.75 Estimated GFR > 60 Fasting Glucose 95 Calcium 9.3 Total Bilirubin 0.4 AST 23 ALT 22 Alkaline Phosphatase 56 Total Protein 7.4 Albumin 4.1 TSH 2.60 Coding Level of Care Code Tele Est Pt Level 3 (84411) Diagnoses Primary hypertension I10 Hypertension type: primary hypertension Dyslipidemia E78.5 Viral URI J06.9 Assessment & Plan Assessment & Plan (1) Hypertension: Code(s): I10 - Essential (primary) hypertension Category: Medical Qualifiers: Hypertension type: primary hypertension Qualified Code(s): I10 - Essential (primary) hypertension Plan: Better controlled with lisinopril 15 mg. (2) Dyslipidemia: Code(s): E78.5 - Hyperlipidemia, unspecified Category: Medical Plan: Well-controlled. We will continue to monitor. Continue simvastatin (3) Viral URI: Code(s): J06.9 - Acute upper respiratory infection, unspecified Plan: Encouraged her to continue to rest with supportive measures. She will follow up if anything worsens or changes.
--- OUTSIDE RECORDS SUMMARY | 2024-04-28 08:36 | XMS_ITS | Patient Health Record ---
Author Organization [facility] Address [address] [place] [address] Support Name Relationship Address Phone THERESA SMITH Guarantor Unknown [phone] Reason For Referral No Information Medications Medication [...] Status W/U Status Risk Notes Problem Hyperlipidemia (65871308) Other and unspecified hyperlipidemia (272.4) Active confirmed Major Problem Essential hypertension (42681043) Unspecified essential hypertension (401.9) Active confirmed Major Problem General examination of patient (826866270) Routine general medical examination at health care facility (V70.0) Active confirmed Diag Plan Of Treatment No Information Insurance Providers Payer Name Payer Address Payer Phone Subscriber Number Group Number Insured Name Patient Relationship to Insured Coverage Start Date Coverage End Date [employer] [place] [address] [place] [address] [id number] LUISTHERESA Self - patient is the insured
== END 2024-04-28 09:10 | disposition home or self-care (01) ==
LOC: HO.HMCFM 08:27
PROVIDERS: PCP Physician Assistant; Visit Provider Physician Assistant
DX: I10 Essential (primary) hypertension (principal); E78.5 Hyperlipidemia, unspecified; J06.9 Acute upper respiratory infection, unspecified

== ENCOUNTER 2024-09-30 10:37 | Outpatient (AMB) | payer BC, SELFPAY ==
--- NOTE | 2024-09-30 10:40 | A.OFFVIS_ITS ---
Vital Signs 09/30/24 10:42 Height 5 ft 8 in Weight 169 lb 12.095 oz BMI 25.8 BP 142/90 H Blood Pressure Location Lt brachial Position Sitting Respiration 74 H Intake Visit Reasons: ower abd pain r/s from apr Intake Note: Lamar presents in the office as a follow up for lower abd pains, CC: She states that she had one mild flare up in june but states she has been great ever since. Funeral Pre Arrangement Counselor Required: No Allergies No Known Allergies Allergy (Verified 04/28/24 08:23) HPI HPI ower abd pain r/s from apr: Details: Assessment & Plan (1) Lower abdominal pain: Code(s): R10.30 - Lower abdominal pain, unspecified Category: Medical (2) Diverticulosis: Code(s): K57.90 - Diverticulosis of intestine, part unspecified, without perforation or abscess without bleeding Category: Medical Plan ONset many years ago with lower abd pain and she was given a physical exam and dx of diverticulitis. THey gave her abx and it cleared up. Now every so often she will have some pain that spans across the lower abd just below the umbilicus as a burning pain. When she would not have pain she would not think about this. BUT then her sister had some sort of blockage that lead to sepsis and an ICU stay. This worried her and she had a CT at [facility] showing only mild TICs and a GB polyp. Since then she has tried to add dietary fiber and she has had no more pain. She had been taking metamucil but was confused about it conflicting with her am lisinopril. We discuss diet and I print her one with the caveat that this is somewhat controversy in research. Also changing time of day of fiber supplement and could consider Benefiber or Citrucel or IB guard. She seems to feel better when she has the fiber so I suspect this is some form of diverticular disease. Now that she knows she needs to take the fiber and it is okay to take it with the lisinopril we will go forward and see how she reacts to this. Last scope 06/2020 at [facility] with Dr. Cervantes. LILIA 3 mos. TODAYS VISIT She continues to do very well! She had 1 minor recurrence of discomfort but she simply went to a liquid diet and this resolved. She has been avoiding popcorn and whole corn simply because she does not want to risk it. She continues on Metamucil and she feels that this is serving her well as well as making sure she remains hydrated. She wishes to stay on our patient will so will give her a 1 year follow-up. [facility] Medical History (Updated 10/22/23 @ 08:46 by Delicia Schuster PA-C) H/O mammogram Tinnitus Solar degeneration Hypercholesterolemia Essential hypertension Dysfunction of eustachian tube Diverticulitis Allergic rhinitis Surgical History History of esophagogastroduodenoscopy (EGD) H/O colonoscopy Family History Mother HTN (hypertension) Hypercholesterolemia Basal cell carcinoma Father HTN (hypertension) Hypercholesterolemia Social History (Updated 04/28/24 @ 08:25 by Joslyn Cruz CMA) Housing: House Alcohol intake: current Alcohol intake frequency: holidays/special occasions only Patient Tobacco Use Status: Never used Tobacco service: Yes Current occupational status: retired Cognitive needs: No Hearing needs: No Vision needs: No Review of Systems Const Denies fatigue, Denies fever(s), Denies night sweats, Denies poor appetite and Denies weight loss Eyes Details: glasses Reports requires corrective lenses ENT Reports Normal hearing present, Denies dental pain, Denies dysphagia, Denies hearing loss, Denies mouth pain, Denies odynophagia, Denies throat swelling, Denies tongue swelling and Reports other (Dentition adequate) Card Reports no additional complaints Resp Reports no additional complaints GI Details: Denies abdominal pain, Denies melena, Denies bloating, Denies hematochezia, Denies constipation, Denies GI cramping, Denies dysphagia, Denies excessive flatus, Denies early satiety, Denies heartburn, Denies diarrhea, Denies nausea, Denies odynophagia, Denies vomiting and Denies hematemesis Skin/Breast Denies pruritus, Denies lesions, Denies rash and Denies jaundice Neuro Reports Normal hearing present and Denies Abnormal speech present Endo Denies fatigue Aller/Immun Denies throat swelling and Denies tongue swelling Physical Exam Vital Signs: Last Vital Signs Resp 74 H 09/30/24 10:42 BP 142/90 H 09/30/24 10:42 BMI result Body Mass Index 25.8 Const General: cooperative, no acute distress, well developed and well groomed Nutritional Appearance: average body habitus and well nourished Orientation/consciousness: oriented to person, oriented to place and oriented to time Limitations: No language barrier HEENT Head: Yes normocephalic and Yes atraumatic Eyes General: appearance normal, both eyes and all related structures Pupils: Equal, round and reactive pupils present Neck Neck: Yes normal visual inspection and Yes no lymphadenopathy Thyroid: Thyroid normal Resp Effort & Inspection: normal respiratory effort and able to speak in complete sentences Auscultation: clear to auscultation bilaterally Cardio Rate: regular rate Rhythm: regular rhythm Heart sounds: Normal, physiologic split S2 sound present Peripheral pulses: radial pulses present and posterior tibial pulses present GI Inspection: No distended and No Abdominal panniculus present Palpation (GI): Soft to palpation, nontender, no guarding, not rigid and No hepatosplenomegaly present Percussion: Yes normal to percussion Auscultation: normal bowel sounds Rectal Exam - Female: deferred Skin General skin exam: no rashes or lesions noted, turgor normal, skin not dry, no jaundice, No spider nevi and no striae Rashes: no rashes Nails: normal Neuro General: oriented to person, oriented to place and oriented to time Cranial nerves: Yes Equal, round and reactive pupils present and Yes Normal hearing present Speech: No Abnormal speech present Extrem General: Yes normal to inspection, No clubbing, No cyanosis and No edema Psych Appearance: grossly normal and well kempt Mental Status: mental status grossly normal Speech and movement: Normal speech and movement present Affect: normal affect Attitude: cooperative Thought process: Normal thought process present and not confabulating Thought content: Normal thought content present Insight: Good insight present (Psych) Judgement: Good judgement present (Psych) Assessment & Plan Assessment & Plan (1) Diverticulosis: Code(s): K57.90 - Diverticulosis of intestine, part unspecified, without perforation or abscess without bleeding Category: Medical (2) Lower abdominal pain: Code(s): R10.30 - Lower abdominal pain, unspecified Category: Medical Plan She continues to do very well! She had 1 minor recurrence of discomfort but she simply went to a liquid diet and this resolved. She has been avoiding popcorn and whole corn simply because she does not want to risk it. She continues on Metamucil and she feels that this is serving her well as well as making sure she remains hydrated. She wishes to stay on our patient will so will give her a 1 year follow-up. Coding Level of Care Code Est Pt Level 3 (12553) Diagnoses Diverticulosis K57.90 Lower abdominal pain R10.30
[2024-09-30 10:42] VITALS: BP 142/90; RESP 74; BMI 25.8
--- OUTSIDE RECORDS SUMMARY | 2024-09-30 11:08 | XMS_ITS | Patient Health Record ---
Author Organization [facility] Address [address] [place] [address] Support Name Relationship Address Phone THERESA SMITH Guarantor Unknown [phone] Reason For Referral No Information Medications Medication SIG (Take, Route, Fr equency, Duration) Notes Start Date End Date Status Zocor 20MG 1 ORAL daily; Duration: -3 Benjamín-MJ 06/20/2011 Active Lisinopril 10MG 1 ORAL daily; Duration: -3 Benjamín-MJ 012 Active Immunizations Vaccine Route Administration Date Status Comme nts Influenza, live, intranasal Intramuscular 10/08/2011 Pendi ng Tdap Intramuscular 10/08/2011 Pending Problems Problem Type SNOMED Code ICD Code Onset Dates Problem Status W/U Status Risk Notes Problem Hyperlipidemia (28172357) Other and unspecified hyperlipidemia (272.4) Active confirmed Major Problem Essential hypertension (30293204) Unspecified essential hypertension (401.9) Active confirmed Major Problem General examination of patient (990650251) Routine general medical examination at health care facility (V70.0) Active confirmed Diag Plan Of Treatment No Information Insurance Providers Payer Name Payer Address Payer Phone Subscriber Number Group Number Insured Name Patient Relationship to Insured Coverage Start Date Coverage End Date [employer] [place] [address] [place] [address] [id number] THERESA SMITH Self - patient is the insured
--- OUTSIDE RECORDS SUMMARY | 2024-09-30 11:08 | XMS_ITS | Clinical Summary ---
Author Organization [facility] Address [address] [place] [id number] Phone Care Team Providers Care Platform Consultant Name Role Phone Venessa Chris MD Primary Care Provider Allergies No known active allergies Medications lisinopril (PRINIVIL,ZESTR IL) 10 MG tablet Take 1 tablet by mouth daily. 07/26/2021 Active simvastatin (ZOCOR) 20 MG tablet 01/13/2023 Active multivitamin per tablet Take by mouth daily. Active albuterol (PROAIR HFA) 90 mcg/actuation inhaler Inhale 2 puffs into the lungs every 4 (four) hours as needed for wheezing. 18 g 01/16/2023 Active benzonatate (TESSALON) 100 MG capsule Take 2 capsules (200 mg total) by mouth 3 (three) times a day as needed for cough. 21 capsule 01/16/2023 Active inhaler spacing device (AEROCHAMBER,BR EATHERITE) Spcr Inhale 1 each into the lungs every 4 (four) hours as needed. 1 each 01/16/2023 Active Active Problems No known active problems Social History Tobacco Use Types Packs/Day Years Used Date Smoking Tobacco: Never Smokeless Tobacco: Never Tobacco Cessation:Counseling Given: Not Answered Education Answer Date Recorded Are you interested in more education? Not on jake e 01/16/2023 Are you concerned about learning? Not on file 01/16/2023 No 01/16/2023 No 01/16/2023 Digital Access Answer Date Recorded No 01/16/2023 No 01/16/2023 Reliable internet access at home? Not on file 01/16/2023 Device with a working camera? Not on file Comments Unknown Sex and Gender Information Value Date Recorded Sex Assigned at Not on file Legal Sex Female 1:18 PM EDT Gender Identity Not on file Sexual Orientation Not on file Last Filed Vital Signs Vital Sign Reading Time Taken Comments Blood Pressure 129/86 01/16/2023 2:52 PM EDT Pulse 76 01/16/2023 2:52 PM EDT Temperature 36.7 C (98 F) 01/16/2023 2:52 PM EDT Respiratory Rate 18 01/16/2023 2:52 PM EDT Oxygen Saturation 97% 01/16/2023 2:52 PM EDT Inhaled Oxygen Concentration - - Weight - - Height - - Body Mass Index - - Plan of Treatment Health Maintenance Due Date Last Done Comments CREATININE LEVEL 1954 LIPID PANEL 1954 POTASSIUM LEVEL 1954 DEPRESSION SCREENING 1966 HEPATITIS C SCREENING 1972 MAMMOGRAM 1994 COLOGUARD 1999 COLONOSCOPY 1999 COLORECTAL CANCER SCREENING 1999 FIT TEST 1999 FOBT 1999 SIGMOIDOSCOPY 1999 VIRTUAL COLONOSCOPY 1999 OSTEOPOROSIS SCREENING INITIAL (ONE-TIME) 2019 Adult Td,Tdap Booster 04/05/2023 04/05/2013 COVID-19 VACCINE ( season) 2023 12/27/2022, 01/01/2022, 01/10/2021, Additional history exists RSV VACCINE (1 - 1-dose 75+ series) 2029 ZOSTER VACCINES Completed 04/17/2020, 06/2019, 10/03/2014 PNEUMOCOCCAL VACCINES (50+ years) Completed 10/01/2020, 09/14/2019 SMOKING STATUS SCREENING (Once After 26 Yrs) Completed 01/16/2023 HEPATITIS A VACCINES Aged Out No long er eligible based on patient's age to complete this topic HIB VACCINES Aged Out No longer eligi ble based on patient's age to complete this topic MENINGOCOCCAL VACCINES (ACWY) Aged Out No longer eligible based on patient's age to complete this topic MENINGOCOCCAL VACCINES (B) Aged Out N o longer eligible based on patient's age to complete this topic Medical Devices Not on file [place] [address] [address] [place] [address] [place] [address] [facility] [place] [address] [place] [address] Care Teams Platform Consultant Relationship Specialty Start Date End Date Venessa Chris MD PCP - General Internal Medicine 01/16/23 Additional Source Comments The information contained in this document represents components of the legal health record. It is not the complete legal health record.[facility]
== END 2024-09-30 11:13 | disposition home or self-care (01) ==
LOC: HO.HGI 10:38
PROVIDERS: PCP Physician Assistant; Visit Provider Nurse Practitioner
DX: K57.90 Diverticulosis of intestine, part unspecified, without perforation or abscess without bleeding (principal); R10.30 Lower abdominal pain, unspecified
CPT/HCPCS: 99213

== ENCOUNTER 2024-11-07 07:34 | Outpatient (REF) | payer BC, SELFPAY ==
--- OUTSIDE RECORDS SUMMARY | 2024-11-07 07:36 | XMS_ITS | Patient Health Record ---
Author Organization [facility] Address [address] [place] [address] Support Name Relationship Address Phone THERESA SMITH Guarantor Unknown [phone] Reason For Referral No Information Medications Medication [...] Status W/U Status Risk Notes Problem Hyperlipidemia (81550439) Other and unspecified hyperlipidemia (272.4) Active confirmed Major Problem Unspecified essential hypertension (401.9) Active confirmed Major Problem General examination of patient (832962921) Routine general medical examination at health care facility (V70.0) Active confirmed Diag Plan Of Treatment No Information Insurance Providers Payer Name Payer Address Payer Phone Subscriber Number Group Number Insured Name Patient Relationship to Insured Coverage Start Date Coverage End Date [employer] [place] [address] [place] [address] [id number] LUISTHERESA Self - patient is the insured
--- OUTSIDE RECORDS SUMMARY | 2024-11-07 07:36 | XMS_ITS | Clinical Summary ---
Author Organization [facility] Address [address] [place] [address] Phone Care Team Providers Care Associate Editor Name Role Phone Venessa Amato MD Primary Care Provider [phone] Allergies No known active allergies Medications lisinopril [...] 75+ series) 2029 ZOSTER VACCINES Completed 04/17/2020, 1206/2019, 10/03/2014 PNEUMOCOCCAL VACCINES (50+ years) Completed 10/01/2020, [...] topic Medical Devices Not on [place] [address] [place] [address] [place] [address] [place] [address] [facility] [place] [place] [address] [place] [address] Care Teams Associate Editor Relationship Specialty Start Date End Date Venessa Amato MD [phone] (work) PCP - General Internal Medicine 01/16/23 Additional Source Comments The information contained in this document represents components of the legal health record. It is not the complete legal health record.[facility]
--- OUTSIDE RECORDS SUMMARY | 2024-11-07 07:37 | XMS_ITS ---
Author Name [facility] Organization Unknown Care Team Organization Name Specialty Phone Email Start Date End Da te [facility] Termed, PROVIDER Primary Care 01/21/202210/14
[2024-11-07 11:07] LABS: MANUAL DIFF FLAG NO
[2024-11-07 11:31] LABS: Hematocrit 44.9 % (37.0-47.0); Hemoglobin 14.8 g/dl (12.0-16.0); Imm Gran Abs Auto 0.01 X10*3/uL (0.00-0.03); Imm Gran Pct Auto 0.2 % (0.0-0.4); Lymphocytes Absolute Auto 1.8 X10*3/uL (1.2-4.9); Mean Corpuscular HGB Conc 33.0 g/dl (31.0-35.0); Mean Corpuscular Hemoglobin 30.0 pg (27.0-33.0); Mean Corpuscular Volume 91.1 fL (80.0-98.0); NRBC Abs Auto 0.000 X10*3/uL (0.0-0.012); NRBC Pct Auto 0.0 /100WBC (0.0-0.2); Platelet Count 298 X10*3/uL (160-400); Red Blood Count 4.93 X10*6/uL (4.20-5.50); White Blood Count 5.4 X10*3/uL (4.8-10.8)
[2024-11-07 12:09] LABS: Alanine Aminotransferase 33 U/L (0-31); Albumin Level 4.3 g/dL (3.5-5.0); Alkaline Phosphatase 56 U/L (39-117); Anion Gap 12 (12-20); Aspartate Amino Transferase 39 U/L (5-31); Blood Urea Nitrogen 19 mg/dL (9-16); Calcium 9.3 mg/dL (8.4-10.2); Carbon Dioxide 27 mmol/L (22-29); Chloride 107 mmol/L (96-108); Cholesterol 191 mg/dL (<200); Estimated Glomerular Filt Rate > 60; HDL Cholesterol 63 mg/dL (>40); Potassium 4.4 mmol/L (3.3-5.1); Sodium 142 mmol/L (135-145); Total Protein 7.0 g/dL (6.5-8.0); Triglycerides 84 mg/dL (<150)
[2024-11-07 14:26] LABS: Appearance Urine Clear; Glucose Urine UA Negative (Negative); PH 6.5 (5.0-9.0); Specific Gravity - Urine 1.025 (1.005-1.025); UMIC TRIGGER UACC YES
== END 2024-11-07 07:35 | disposition home or self-care (01) ==
LOC: HO.WFDLDS 07:34
PROVIDERS: Visit Provider Physician Assistant
DX: I10 Essential (primary) hypertension (principal); E78.5 Hyperlipidemia, unspecified
CPT/HCPCS: 36415; 80053; 80061; 81001; 84443; 85025

== ENCOUNTER 2024-11-10 10:02 | Outpatient (AMB) | payer BC, SELFPAY ==
--- NOTE | 2024-11-10 10:11 | A.OFFPC_ITS ---
Vital Signs 11/10/24 10:15 Height 5 ft 8 in Weight 170 lb 2 oz BMI 25.9 BP 108/68 Blood Pressure Location Rt brachial Position Sitting Respiration 12 Pulse 63 Pulse Source Pulse Oximeter Pulse Oximetry (%) 98 Oxygen Delivery Method Room Air Intake Visit Reasons: 6M Follow UP Aircraft Structural Design Engineer Required: No Allergies No Known Allergies Allergy (Verified 11/10/24 10:13) Medication List - Last Reconciled 11/10/24 by Delicia Schuster PA-C cholecalciferol (vitamin D3) 25 mcg PO DAILY lisinopril 10 mg PO DAILY lisinopril 5 mg PO DAILY metronidazole 0.75% appl topical multivitamin (One Daily Multivitamin tablet) 1 tab PO DAILY psyllium husk (Metamucil) 1 tbsp PO DAILY simvastatin 20 mg PO BEDTIME tacrolimus 0.1% 1 appl topical BID Tobacco use date assessed: 11/10/24 Fall risk assessment: No Falls in past year Last assessed Fall Risk: 11/10/24 Dental Screening Dental Screen Date: 11/10/24 Did you have a dental visit in the last 12 months?: Yes Did you have a dental problem in the last 6 months where you did not have access to dental care?: No Was dental information given to patient?: Patient has dentist HPI 6M Follow UP HPI Details Pt is a 69 y/o female who presents today for a follow up. Recent labs show mildly elevated LFTs. She says that she would get blood following a wedding weekend. She says that she indulged a little bit more than she normally would. She denies any abdominal pain. No recent illness. No fevers or chills. Doing well. CV: bps at home have been normal. Blood pressure today in the office is 108/68. She is doing well with the 15 mg of lisinopril. Cholesterol has been well managed with the simvastatin. No myalgias. Mammo: Up-to-date, 11/06 and normal Pap: declines anymore Bone density: FLD-normal 2023 Colonoscopy: Up-to-date, 2021 Derm: sees [facility] and saw them in March Immunizations: [facility] Medical History (Updated 11/10/24 @ 10:44 by Delicia Schuster PA-C) H/O mammogram Tinnitus Solar degeneration Hypercholesterolemia Essential hypertension Dysfunction of eustachian tube Diverticulitis Allergic rhinitis Surgical History History of esophagogastroduodenoscopy (EGD) H/O colonoscopy Family History Mother HTN (hypertension) Hypercholesterolemia Basal cell carcinoma Father HTN (hypertension) Hypercholesterolemia Social History (Updated 04/28/24 @ 08:25 by Joslyn Cruz CMA) Housing: House Alcohol intake: current Alcohol intake frequency: holidays/special occasions only Patient Tobacco Use Status: Never used Tobacco e-Cigarette/Vaping Use: Never Used Second Hand Smoke Exposure: No service: Yes Current occupational status: retired Cognitive needs: No Hearing needs: No Vision needs: No Questionnaire PHQ-9 Over the last 2 weeks, how often have you been bothered by any of the following problems? 1. Little interest or pleasure in doing things: not at all 2. Feeling down, depressed, or hopeless: not at all 3. Trouble falling or staying asleep, or sleeping too much: several days 4. Feeling tired or having little energy: several days 5. Poor appetite or overeating: not at all 6. Feeling bad about yourself - or that you are a failure or have let yourself or your family down: not at all 7. Trouble concentrating on things, such as reading the newspaper or watching television: not at all 8. Moving or speaking so slowly that other people could have noticed. Or the opposite - being so fidgety or restless that you have been moving around a lot more than usual: not at all 9. Thoughts that you would be better off or of hurting yourself in some way: not at all Total score: 2 Source: Developed by Drs. Jose Manuel Bowen, Za Rivas, Joce Salguero and colleagues, with an educational zbigniew from [employer]. Thrive Questionnaire Date Thrive assessed: 04/21/24 I am a: Patient What is your living situation today?: I have a steady place to live Within the past 12 months, did the food you bought not last and you didn't have the money to get more?: Never true Within the past 12 months, did you worry whether your food would run out before you got money to buy more?: Never true Do you have trouble paying for medicines?: No Do you have trouble getting transportation to medical appointments?: No Do you have trouble paying your heating and electricity bill?: No Do you have trouble taking care of your child, family member or friend?: No Do you have trouble with day-to-day activities such as bathing, preparing meals, shopping, managing finances, etc.?: No Are you currently unemployed and looking for a job?: No Are you interested in more education?: No Please select the resources that you would like help with: None Currently or been in a relationship where the following occur: No concerns reported THRIVE Score: 0 AUDIT C Alcohol Use Questionnaire (AUDIT-C) 1. How often do you have a drink containing alcohol?: 2-3 times a week 2. How many drinks containing alcohol do you have on a typical day when you are drinking?: 1 or 2 3. How often do you have six or more drinks on one occasion?: Never Total Score: 3 ISAI-7 AMB Questionnaire ISAI-7 Date ISAI - 7 assessed: 10/22/23 Source: Developed by Drs. Jose Manuel Bowen, Za Rivas, Joce Salguero and colleagues, with an educational zbigniew from [employer]. Physical exam (Primary Care) Vital Signs: Last Vital Signs Pulse 63 11/10/24 10:15 Resp 12 11/10/24 10:15 BP 108/68 11/10/24 10:15 Pulse Ox 98 11/10/24 10:15 Oxygen Delivery Method Room Air 11/10/24 10:15 BMI result Body Mass Index 25.9 Tobacco/Smoking Status: Tobacco use Status Tobacco use date assessed 11/10/24 11/10/24 10:17 Patient Tobacco Use Status Never used Tobacco 11/10/24 10:17 e-Cigarette/Vaping Use Never Used 11/10/24 10:17 PHQ-9: PHQ-9 Score PHQ-9: Total score 2 11/10/24 10:28 Thrive Assessment: Date of Thrive Assessment Date Thrive assessed 04/21/24 11/10/24 10:17 Currently or been in a relationship where the following occur: No concerns reported Const Orientation/consciousness: patient oriented x3 HENMT Ears: hearing grossly normal bilaterally Neck Thyroid: Thyroid normal Lymphatic: no lymphadenopathy noted Resp Auscultation: clear to auscultation bilaterally Cardio Rate: regular rate Rhythm: regular rhythm Heart sounds: S1 normal heart sound present and S2 normal heart sound present Skin General skin exam: no rashes or lesions noted Neuro General: patient oriented x3, gait normal and no focal motor deficits Results Reviewed Results Reviewed: Laboratory Tests 11/07/24 07:38 WBC 5.4 RBC 4.93 Hgb 14.8 Hct 44.9 Plt Count 298 Sodium 142 Potassium 4.4 Chloride 107 Carbon Dioxide 27 Anion Gap 12 Creatinine 0.88 Estimated GFR > 60 Fasting Glucose 89 Calcium 9.3 Total Bilirubin 0.4 AST 39 H ALT 33 H Alkaline Phosphatase 56 Triglycerides 84 Cholesterol 191 LDL Cholesterol, Calc 112 H HDL Cholesterol 63 TSH 1.99 Coding Level of Care Code Est Pt Level 4 (67020) Complex EM visit Add On G2211 Diagnoses Dyslipidemia E78.5 Primary hypertension I10 Hypertension type: primary hypertension Elevated LFTs R79.89 Assessment & Plan Assessment & Plan (1) Dyslipidemia: Code(s): E78.5 - Hyperlipidemia, unspecified Category: Medical Plan: She is working on diet. Does not want to adjust simvastatin. We will recheck in 6 months. (2) Hypertension: Code(s): I10 - Essential (primary) hypertension Category: Medical Qualifiers: Hypertension type: primary hypertension Qualified Code(s): I10 - Essential (primary) hypertension Plan: WNL. Continue current regimen (3) Elevated LFTs: Code(s): R79.89 - Other specified abnormal findings of blood chemistry Category: Medical Plan: We will recheck this. Orders: Orders Lipid Panel 6 Months E78.5 - Hyperlipidemia, unspecified Liver Panel Today E78.5 - Hyperlipidemia, unspecified, I10 - Essential (primary) hypertension, R79.89 - Other specified abnormal findings of blood chemistry
[2024-11-10 10:15] VITALS: BP 108/68; PULSE 63; RESP 12; O2SAT 98; BMI 25.9
--- OUTSIDE RECORDS SUMMARY | 2024-11-10 11:15 | XMS_ITS | Encounter Summary ---
Author Organization [facility] Address [address] [place] [address] Care Team Providers Care Superintendent Of Schools Name Role Phone Sridevi Cox MD Primary Care Provider Unava ilable Encounter Details Date Type Department Care Team Description 09/27/2019 Pt. Non Urgent Medic al Question Adult Medicine [address] [address] Sridevi Cox MD Social History Tobacco Use Types Packs/Day Years Used Date Smoking Tobacco: Never Smokeless Tobacco: Never Alcohol Use Standard Drinks/Week Comments Yes 0 (1 standard drink = 0.6 oz pure alcohol) 4 glasses of wine or beer per week Sex Assigned at Date Recorded Female 10/01/2020 4:51 AM E DT Job Start Date Occupation Industry Not on file Not on file Not on file documented as of this encounter Progress Notes * Ana Wagner R.N. - 09/27/2019 9:01 AM EDTFrom: Lamar White To: Sridevi Cox MD Sent: 09/27/2019 8:30 AM EDT Subject: Routine colonoscopy Good morning! As discussed at my last appointment (09/14/2019), I am due for my colonoscopy. Is thereany doctor or practice that you would recommend? I live in [place] so it would be more convenientif it was local. Thanks for your help! documented in this encounter Plan of Treatment Not on file documented as of this encounter Visit Diagnoses Not on filedocumented in this encounter Care Teams Superintendent Of Schools Relationship Specialty Start Date End Date Sridevi Cox MD PCP - General Internal Medicine 12/16/11 documented as of this encounter
--- OUTSIDE RECORDS SUMMARY | 2024-11-10 11:15 | XMS_ITS | Encounter Summary ---
Author Organization [facility] Address [address] [place] [address] Care Team Providers Care Qa Reviewer Name Role Phone Sridevi Cox MD Primary Care Provider Kobi mahan Encounter Details Date Type Department Care Team Description 07/16/2021 Pt. Non Urgent Medical Question Medicine/Pediatrics - [address] [address] Sridevi Cox MD Essential hypertension; Hypercholesteremia Social History Tobacco Use Types Packs/Day Years [...] on file documented as of this encounter Miscellaneous Notes * Telephone Encounter - Ninfa Edgar L.P.N. - 07/16/2021 10:08 AM EDTFrom: Lamar White To: Helena Cox Sent: 07/16/2021 9:41 AM EDT Subject: Refill prescriptions I would like to make sure that my prescriptions for Lisinopril and Simvastatin are authorized for refills. I have enough for now, but my concern is for future refills if I can't get an appointment with another doctor in a timely manner. So sorry to here that you are leaving :(. I have so appreciated your care through the years. Wishing you all of the best! documented in this encounter Plan of Treatment Not on file documented as of this encounter Visit Diagnoses Diagnosis Essential hypertension Unspecified essential hypertension Hypercholesteremia Pure hypercholesterolemia documented in this encounter Care Teams Qa Reviewer Relationship Specialty Start Date End Date Sridevi Cox MD PCP - General Internal Medicine 12/16/11 documented as of this encounter
--- OUTSIDE RECORDS SUMMARY | 2024-11-10 11:15 | XMS_ITS | Encounter Summary ---
Author Organization [facility] Address [address] [place] [address] Care Team Providers Care Drawbridge Tender Name Role Phone Sridevi Cox MD Primary Care Provider Kobi mahan Encounter Details Date Type Department Care Team Description 06/21/2021 Pt. Referral Request [address] [address] Md Stevie Social History Tobacco Use Types Packs/Day Years [...] on file documented as of this encounter Plan of Treatment Not on file documented as of this encounter Visit Diagnoses Not on filedocumented in this encounter Care Teams Drawbridge Tender Relationship Specialty Start Date End Date Sridevi Cox MD PCP - General Internal Medicine 12/16/11 documented as of this encounter
--- OUTSIDE RECORDS SUMMARY | 2024-11-10 11:15 | XMS_ITS | Patient Health Record ---
Author Organization [facility] Address [address] [place] [address] Support Name Relationship Address Phone THERESA SMITH Guarantor Unknown [phone] Reason For Referral No Information Medications Medication [...] Status W/U Status Risk Notes Problem Hyperlipidemia (68268457) Other and unspecified hyperlipidemia (272.4) Active confirmed Major Problem Essential hypertension (29972900) Unspecified essential hypertension (401.9) Active confirmed Major Problem General examination of patient (604345533) Routine general medical examination at health care facility (V70.0) Active confirmed Diag Plan Of Treatment No Information Insurance Providers Payer Name Payer Address Payer Phone Subscriber Number Group Number Insured Name Patient Relationship to Insured Coverage Start Date Coverage End Date [employer] [place] [address] [place] [address] [id number] THERESA SMITH Self - patient is the insured
--- OUTSIDE RECORDS SUMMARY | 2024-11-10 11:15 | XMS_ITS | Encounter Summary ---
Author Organization [facility] Address [address] [place] [address] Care Team Providers Care Regional Dedicated Truck Driver Name Role Phone Sridevi Cox MD Primary Care Provider Unava ilable Reason for Referral * EXTERNAL (Routine) - Authorized/Booked Specialty Diagnoses / Procedures Referred By Hellen jauregui Referred To Contact Podiatry Procedures REFERRAL TO PODIATRY (OUT OF NETWORK) Sridevi Cox MD [address] [place] [address] Zuleika Soto Dpm, DPM [address] [place] [address] Referral ID Status Reason Start Date Expiration Date V isits Requested Visits Authorized [id number] Authorized/B ooked 12/05/2020 04/05/2021 1 1 Reason for Visit * Reason Onset Date Comments Medical Data Entry Clerk Feedback 12/05/2020 Encounter Details Date Type Department Care Team Description 12/05/2020 Telephone Medicine/Pediatrics - [address] [phone] Sridevi Cox MD Medical Data Entry Clerk Feedback Social History Tobacco Use Types Packs/Day Years [...] encounter Miscellaneous Notes * Telephone Encounter - Nora Ames - 12/05/2020 2:32 PM EDT Please review this patients new referral request. The referral has been pended. Please complete thefollowing: If approved> sign order If denied>please give instructions and route to your practice nursing pool. Practice nurse should inform referrals and the patient if denied. Mychart request documented in this encounter Plan of Treatment Not on file documented as of this encounter Visit Diagnoses Not on filedocumented in this encounter Care Teams Regional Dedicated Truck Driver Relationship Specialty Start Date End Date Sridevi Cox MD PCP - General Internal Medicine 12/16/11 documented as of this encounter
--- OUTSIDE RECORDS SUMMARY | 2024-11-10 11:15 | XMS_ITS | Clinical Summary ---
Author Organization [facility] Address [address] [place] [address] Care Team Providers Care Chisel Trimmer Name Role Phone Sridevi Cox MD Primary Care Provider Unava ilable Allergies No known active allergies Medications Medication Sig Dispensed Refills Start Date End Date Status Multiple Vitamin (MULTI-VITAMIN OR) Take by mouth daily. 0 Active betamethasone dipropionate (DIPROLENE) 0.05 % cream Apply bid sparingly to affected area as needed 30 g 1 09/14/2019 Active metronidazole (METROGEL) 1 % gel Apply to face once a day 45 g 6 11/30/2019 Active tretinoin (RETIN-A) 0.025 % cream Apply small amount QHS 20 g 5 02/22/2020 Active azelastine (ASTELIN) 0.1 % nasal spray 2 Sprays by Each Nare route 2 times daily. Use in each nostril as directed 30 mL 3 04/02/2021 Active econazole nitrate 1 % cream Apply to feet daily for 4 consecutive weeks. Repeat as needed 60 g 1 04/02/2021 Active simvastatin (ZOCOR) 20 MG tabletIndications:Hy percholesteremia Take 1 Tablet by mouth at bedtime. 90 Tablet 1 07/26/2021 Active lisinopril (PRINIVIL,ZESTRIL) 10 MG tabletIndications:Es sential hypertension Take 1 Tablet by mouth daily. 90 Tablet 1 07/26/2021 Active Active Problems Problem Noted Date Sun-damaged skin 07/01/2018 Tinnitus 04/03/2015 Allergic rhinitis 10/05/2013 Eustachian tube dysfunction 10/05/2013 Essential hypertension 02/17/2012 Hypercholesteremia 02/17/2012 Immunizations Name Administration Dates Next Due COVID-19 (Moderna) 01/10/2021 COVID-19 (Moderna) PT Reported 06/12/2020,2020 Influenza (> 6 Months) 01/02/2016,12/28/2014, Influenza Vaccine-preservati ve Free-quadrivalent 4 Years 01/27/2019,12/16/2017 Influenza Vaccine-quadrivalent 4 Years Plus 02/14 Influenza vaccine high dose age 65 and over 01/14,12/16/2019 Pneumoccoccal(Adult) Polysaccharide PPSV23 10/01 Pneumococcal Conjugate PCV-13 09/14/2019 Shingrix (Recombinant zoster vaccine) 04/17/2020 ,02/17/2020 Tdap 04/05/2013 Zostavax 10/03/2014 Family History Medical History Relation Name Comments BCC Mother CA Breast Negative Hx CA Colon Negative Hx CA Ovarian Negative Hx Uterine Cancer Negative Hx Relation Name Status Comments Brother Alive healthy Father (Age 85) Heart - in his sleepHTN; chol Maternal Grandfather Maternal Grandmother Mother (Age 88) dementia, trigeminal neuralgia, HTN, chol Paternal Grandfather Paternal Grandmother Sister Alive healthy Social History Tobacco Use Types Packs/Day Years Used Date Smoking Tobacco: Never Smokeless Tobacco: Never Alcohol Use Standard Drinks/Week Comments Yes 0 (1 standard drink = 0.6 oz pure alcohol) 4 glasses of wine or beer per week Sex Assigned at Date Recorded Female 10/01/2020 4:51 AM E DT Job Start Date Occupation Industry Not on file Not on file Not on file Last Filed Vital Signs Vital Sign Reading Time Taken Comments Blood Pressure 133/87 04/02/2021 8:48 AM EST Pulse 79 04/02/2021 8:48 AM EST Temperature 36.6 C (97.9 F) 04/02/2021 8:48 AM EST Respiratory Rate 16 04/02/2021 8:48 AM EST Oxygen Saturation 97% 08/17/2017 3:22 PM EDT Inhaled Oxygen Concentration - - Weight 76.2 kg (168 lb) 04/02/2021 8:48 AM EST Height 175.3 cm (5' 9 ) 04/02/2021 8:48 AM EST Body Mass Index 24.81 04/02/2021 8:48 AM EST Plan of Treatment Health Maintenance Due Date Last Done Comments BONE DENSITY SCREENING 08/20/2022 08/20/2020 MAMMOGRAM 09/17/2022 09/17/2021, 07/2021 (External Completion), 09/13/2020, Additional history exists DTAP/TDAP/TD (2 - Td or Tdap) 04/05/2023 04/05/2013 Covid-19 Vaccine (4 - 2022-2 4 season) 2023 01/10/2021, 06/12/2020, 05/14/2020 INFLUENZA (#1) 2024 01/31/2021, 04/2019, 01/27/2019, Additional history exists CHOLESTEROL SCREENING 03/28/2026 03/28/2021 , 09/27/2020, 04/06/2020, Additional history exists COLON CANCER SCREENING 07/11/2030 , 07/11/2020 (Completed), 01/05/2009 (External Completion) HEPATITIS C SCREENING Completed 09/29/2013 SHINGLES VACCINE Completed 04/17/2020, 06/2019, 10/03/2014 PNEUMOCOCCAL VACCINE Completed 10/01/2020, 09/14/19 20 Advance Directives For more information, please contact: [phone] Documents on File Type Date Recorded Patient Pest Controller Expl anation Health Care Proxy 04/10/2021 10:[address] [facility] CARE PROXY Care Teams Chisel Trimmer Relationship Specialty Start Date End Date Sridevi Cox MD PCP - General Internal Medicine 12/16/11
--- OUTSIDE RECORDS SUMMARY | 2024-11-10 11:15 | XMS_ITS | Encounter Summary ---
Author Organization [facility] Address [address] [place] [address] Care Team Providers Care Media Arts Professor Name Role Phone Sridevi Cox MD Primary Care Provider Kobi mahan Encounter Details Date Type Department Care Team Description 01/21/2016 Pt. Referral Request [address] [address] Md Stevie Social History Tobacco Use Types [...] on filedocumented in this encounter Care Teams Media Arts Professor Relationship Specialty Start Date End Date Sridevi Cox MD PCP - General Internal Medicine 12/16/11 documented as of this encounter
--- OUTSIDE RECORDS SUMMARY | 2024-11-10 11:15 | XMS_ITS | Clinical Summary ---
Author Organization [facility] Address [address] [place] [phone] Phone Care Team Providers Care Tube Roller Name Role Phone Venessa Amato MD Primary Care Provider Allergies No known [...] topic Medical Devices Not on file [place] [address] [address] [place] [address] [place] [address] [facility] [place] [address] [place] [address] Care Teams Tube Roller Relationship Specialty Start Date End Date Venessa Amato MD [phone] (work) PCP - General Internal Medicine 01/16/23 Additional Source Comments The information contained in this document represents components of the legal health record. It is not the complete legal health record.[facility]
--- OUTSIDE RECORDS SUMMARY | 2024-11-10 11:15 | XMS_ITS | Encounter Summary ---
Author Organization [facility] Address [address] [place] [address] Care Team Providers Care Avionics Technician Name Role Phone Sridevi Cox MD Primary Care Provider Kobi mahan Encounter Details Date Type Department Care Team Description 11/08/2015 Pt. Non Urgent Medical Question Medicine/Pediatrics - [address] [phone] PA-C Social History Tobacco Use Types Packs/Day Years [...] as of this encounter Progress Notes * Sharmin Knight M.A. - 11/08/2015 10:17 AM EDTFrom: Lamar Melendezody To: Allie Street PA-C Sent: 11/08/2015 10:03 AM EDT Subject: Neck CAT scan results Yeah! I appreciate your prompt response re: my CAT scan. It was noted that there was degenerative change in the cervical spine (C5-6 and C6-7) . Can I prevent further deterioration or is this just the aging process? Also, I have requested an ENT referral re: my tinnitus via the [facility]. Malena Cervantes documented in this encounter Plan of Treatment Not on file documented as of this encounter Visit Diagnoses Not on filedocumented in this encounter Care Teams Avionics Technician Relationship Specialty Start Date End Date Sridevi Cox MD PCP - General Internal Medicine 12/16/11 documented as of this encounter
--- OUTSIDE RECORDS SUMMARY | 2024-11-10 11:15 | XMS_ITS | Encounter Summary ---
Author Organization [facility] Address [address] [place] [address] Care Team Providers Care Chemical Plant Worker Name Role Phone Sridevi Cox MD Primary Care Provider Unava ilable Reason for Visit * Reason Onset Date Comments Medication 05/31/2020 Encounter Details Date Type Department Care Team Description 05/31/2020 Refill Gastroenterology - [address] [place] [id number] Kelsey Cervantes MD Medication Social History Tobacco Use Types Packs/Day Years [...] on filedocumented in this encounter Care Teams Chemical Plant Worker Relationship Specialty Start Date End Date Sridevi Cox MD PCP - General Internal Medicine 12/16/11 documented as of this encounter
--- OUTSIDE RECORDS SUMMARY | 2024-11-10 11:15 | XMS_ITS | Encounter Summary ---
Author Organization [facility] Address [address] [place] [address] Care Team Providers Care Light Equipment Operator Name Role Phone Sridevi Cox MD Primary Care Provider Kobi mahan Encounter Details Date Type Department Care Team Description 12/27/2019 Pt. Referral Request [address] [address] Md Stevie Social History Tobacco Use Types [...] on filedocumented in this encounter Care Teams Light Equipment Operator Relationship Specialty Start Date End Date Sridevi Cox MD PCP - General Internal Medicine 12/16/11 documented as of this encounter
--- OUTSIDE RECORDS SUMMARY | 2024-11-10 11:15 | XMS_ITS | Encounter Summary ---
Author Organization [facility] Address [address] [place] [address] Care Team Providers Care Piston Maker Name Role Phone Sridevi Cox MD Primary Care Provider Kobi mahan Encounter Details Date Type Department Care Team Description 12/28/2014 Pt. Referral Request [address] [address] Md Stevie Social History Tobacco Use Types [...] on filedocumented in this encounter Care Teams Piston Maker Relationship Specialty Start Date End Date Sridevi Cox MD PCP - General Internal Medicine 12/16/11 documented as of this encounter
== END 2024-11-10 10:51 | disposition home or self-care (01) ==
LOC: HO.HMCFM 10:03
PROVIDERS: PCP Physician Assistant; Visit Provider Physician Assistant
DX: E78.5 Hyperlipidemia, unspecified (principal); I10 Essential (primary) hypertension; R79.89 Other specified abnormal findings of blood chemistry

== ENCOUNTER 2024-12-15 08:05 | Outpatient (REF) | payer BC, SELFPAY ==
[2024-12-15 11:42] LABS: Appearance Urine Clear; Glucose Urine UA Negative (Negative); PH 6.0 (5.0-9.0); Specific Gravity - Urine 1.025 (1.005-1.025); UMIC TRIGGER UACC YES
[2024-12-15 12:35] LABS: Alanine Aminotransferase 22 U/L (0-31); Albumin Level 4.2 g/dL (3.5-5.0); Alkaline Phosphatase 62 U/L (39-117); Aspartate Amino Transferase 24 U/L (5-31); Total Protein 7.1 g/dL (6.5-8.0)
== END 2024-12-15 08:06 | disposition home or self-care (01) ==
LOC: HO.WFDLDS 08:05
PROVIDERS: Visit Provider Physician Assistant
DX: I10 Essential (primary) hypertension (principal); E78.5 Hyperlipidemia, unspecified; R79.89 Other specified abnormal findings of blood chemistry; Z13.220 Encounter for screening for lipoid disorders
CPT/HCPCS: 36415; 80076; 81001